=== PATIENT | female | born 1960 | race Caucasian/White ===

== ENCOUNTER 2021-08-19 18:03 | Inpatient (IN) | payer MEDICARE, MEDICAID ==
[2021-08-19 18:27] LABS: #Basophils 0.1 10x3/uL (0.0-0.2); #Eosinphils 0.3 10x3/uL (0.0-0.5); #Monocytes 0.7 10x3/uL (0.0-1.1); #Neutrophils 5.5 10x3/uL (1.5-8.4); %Basophils 0.6 % (0.0-2.0); %Eosinophils 3.6 % (0.0-6.0); %Lymphocytes 26.4 % (18.0-47.0); %Monocytes 7.3 % (0.0-10.0); %Neutrophils 61.8 % (40.0-75.0); Hemoglobin 12.7 g/dL (12.0-15.5); Mean Corpuscular HGB CONC 30.5 g/dL (32.0-36.0); Mean Corpuscular Hemoglobin 25.8 pg (27.0-33.0); Mean Corpuscular Volume 84.6 fl (81.6-98.3); Mean Platelet Volume 9.9 fl (7.4-10.4); Platelet Count 286 10x3/uL (150-450); RBC Distribution Width 14.2 % (11.5-14.5); Red Blood Cell (RBC) Count 4.93 10x6/uL (3.90-5.03); White Blood Cell (WBC) Count 8.9 10x3/uL (3.5-10.5)
[2021-08-19] MEDS ORDERED: Aspirin Chewable 81 MG TAB ONE (18:29)
[2021-08-19 18:41] LABS: ALT (SGPT) 25 U/L (8-55); AST (SGOT) 20 U/L (5-34); Albumin 3.8 g/dL (3.5-5.0); Alkaline Phosphatase 98 U/L (40-110); Anion Gap 14 mmol/L (10-20); BUN (Urea Nitrogen) 16 mg/dL (9.8-20.1); Bilirubin, Total 0.2 mg/dL (0.2-1.2); Calc. Creatinine Clearance 0 mL/min (70-130); Calcium 8.9 mg/dL (7.8-10.44); Carbon Dioxide 25 mmol/L (22-29); Chloride 105 mmol/L (98-107); Globulin 3.4 g/dL (2.4-3.5); Glucose 141 mg/dL (70-105); Potassium 3.8 mmol/L (3.5-5.1); Protein, Total 7.2 g/dL (6.0-8.3); Sodium 140 mmol/L (136-145)
[2021-08-19] MEDS ORDERED: Nitroglycerin 2% Ointment 1 INCH/1 GM Packet ONE (20:47)
[2021-08-19 21:39] VITALS: BMI 48.2
[2021-08-19] MEDS ORDERED: Baclofen 10 MG TAB PO SCH (23:00)
[2021-08-19] MEDS ORDERED: Nitroglycerin 2% Ointment 1 INCH/1 GM Packet TOP SCH ×2 (23:00)
[2021-08-19] MEDS ORDERED: Pregabalin 75 MG CAP PO SCH (23:00)
[2021-08-19] MEDS: HYDROcodone/Acetaminophen 10/325 mg Tablet PO PRN (23:10)
[2021-08-19] MEDS: Albuterol Sulfate 2.5 mg/3 ml Neb NEB PRN (23:20)
[2021-08-19 23:38] LABS: Troponin I Less than 0.010 ng/mL (< 0.028)
[2021-08-20] MEDS ORDERED: Lorazepam 0.5 MG TAB PO SCH (00:45)
[2021-08-20 02:35] LABS: Troponin I Less than 0.010 ng/mL (< 0.028)
[2021-08-20 02:55] LABS: Anion Gap 13 mmol/L (10-20); BUN (Urea Nitrogen) 18 mg/dL (9.8-20.1); Calc. Creatinine Clearance 165 mL/min (70-130); Calcium 9.1 mg/dL (7.8-10.44); Carbon Dioxide 25 mmol/L (22-29); Cardiac Risk 2.4 (Less than 4.5); Chloride 105 mmol/L (98-107); Cholesterol 145 mg/dl (< 200 Desired); Glucose 146 mg/dL (70-105); HDL Cholesterol 60 mg/dL (>60 Neg Risk); LDL Cholesterol, Calculated 68 mg/dL; Magnesium 1.8 mg/dL (1.6-2.6); Potassium 3.7 mmol/L (3.5-5.1); Sodium 139 mmol/L (136-145); Triglycerides 83 mg/dL (Less than 150)
[2021-08-20] MEDS: Nitroglycerin 2% Ointment 1 INCH/1 GM Packet TOP SCH ×3 (06:19→22:08)
[2021-08-20] MEDS: HYDROcodone/Acetaminophen 10/325 mg Tablet PO PRN ×2 (08:36→15:30)
[2021-08-20] MEDS: Baclofen 10 MG TAB PO SCH ×2 (08:37→20:58)
[2021-08-20] MEDS: Pregabalin 75 MG CAP PO SCH ×2 (08:38→20:59)
[2021-08-20] MEDS: Enoxaparin Sodium 40 MG/0.4 ML SYRINGE SC SCH (08:38)
[2021-08-20] MEDS: Aspirin Chewable 81 MG TAB PO SCH (08:38)
[2021-08-20] MEDS: Nitroglycerin 0.4 MG TAB (25 Tab Bottle) SL PRN ×3 (10:18→20:34)
[2021-08-20 11:18] LABS: Hemoglobin A1c 6.5 % (4.0-6.0)
[2021-08-20] MEDS: Albuterol Sulfate 2.5 mg/3 ml Neb NEB PRN ×3 (13:15→23:25)
[2021-08-20 13:56] LABS: SARS-CoV-2 PCR by NAA Not Detected (NotDetected)
[2021-08-20] MEDS: ALPRAZolam 0.25 MG TAB PO PRN ×2 (17:10→20:57)
[2021-08-21] MEDS: Nitroglycerin 2% Ointment 1 INCH/1 GM Packet TOP SCH (06:45)
[2021-08-21] MEDS: Pregabalin 75 MG CAP PO SCH ×2 (10:52→20:33)
[2021-08-21] MEDS: Baclofen 10 MG TAB PO SCH ×2 (10:53→20:32)
[2021-08-21] MEDS: Aspirin Chewable 81 MG TAB PO SCH (10:53)
[2021-08-21] MEDS: Ketorolac Tromethamine 30 MG/ML VIAL IVP PRN (10:53)
[2021-08-21] MEDS: Enoxaparin Sodium 40 MG/0.4 ML SYRINGE SC SCH (10:53)
[2021-08-21] MEDS: HYDROcodone/Acetaminophen 10/325 mg Tablet PO PRN ×2 (11:36→20:54)
[2021-08-21] MEDS: Albuterol Sulfate 2.5 mg/3 ml Neb NEB PRN ×2 (13:45→21:30)
[2021-08-21] MEDS: ALPRAZolam 0.25 MG TAB PO PRN (14:28)
[2021-08-21] MEDS ORDERED: PARoxetine 20 MG TAB PO SCH (17:00)
[2021-08-22] MEDS: Nitroglycerin 0.4 MG TAB (25 Tab Bottle) SL PRN ×2 (00:34→09:17)
[2021-08-22] MEDS: ALPRAZolam 0.25 MG TAB PO PRN ×3 (00:38→20:45)
[2021-08-22 09:01] LABS: #Eosinphils 0.5 10x3/uL (0.0-0.5); #Monocytes 0.5 10x3/uL (0.0-1.1); #Neutrophils 4.5 10x3/uL (1.5-8.4); %Basophils 0.5 % (0.0-2.0); %Eosinophils 6.5 % (0.0-6.0); %Lymphocytes 25.4 % (18.0-47.0); %Monocytes 6.7 % (0.0-10.0); %Neutrophils 60.6 % (40.0-75.0); Hemoglobin 12.5 g/dL (12.0-15.5); Mean Corpuscular HGB CONC 30.6 g/dL (32.0-36.0); Mean Corpuscular Volume 84.8 fl (81.6-98.3); Mean Platelet Volume 10.8 fl (7.4-10.4); Platelet Count 288 10x3/uL (150-450); RBC Distribution Width 14.5 % (11.5-14.5); Red Blood Cell (RBC) Count 4.81 10x6/uL (3.90-5.03); White Blood Cell (WBC) Count 7.5 10x3/uL (3.5-10.5)
[2021-08-22 09:12] LABS: Anion Gap 13 mmol/L (10-20); BUN (Urea Nitrogen) 23 mg/dL (9.8-20.1); Calc. Creatinine Clearance 165 mL/min (70-130); Calcium 9.1 mg/dL (7.8-10.44); Carbon Dioxide 27 mmol/L (22-29); Chloride 101 mmol/L (98-107); Glucose 109 mg/dL (70-105); Potassium 4.3 mmol/L (3.5-5.1); Sodium 137 mmol/L (136-145)
[2021-08-22] MEDS: Aspirin Chewable 81 MG TAB PO SCH (09:13)
[2021-08-22] MEDS: Pregabalin 75 MG CAP PO SCH ×2 (09:13→20:45)
[2021-08-22] MEDS: Baclofen 10 MG TAB PO SCH ×2 (09:16→20:45)
[2021-08-22] MEDS: Enoxaparin Sodium 40 MG/0.4 ML SYRINGE SC SCH (09:16)
[2021-08-22] MEDS: HYDROcodone/Acetaminophen 10/325 mg Tablet PO PRN ×3 (09:17→23:53)
[2021-08-22] MEDS: Ketorolac Tromethamine 30 MG/ML VIAL IVP PRN (10:14)
[2021-08-22] MEDS ORDERED: PARoxetine 20 MG TAB PO SCH (16:15)
[2021-08-23] MEDS: Albuterol Sulfate 2.5 mg/3 ml Neb NEB PRN (01:30)
[2021-08-23] MEDS: HYDROcodone/Acetaminophen 10/325 mg Tablet PO PRN ×3 (06:19→15:35)
[2021-08-23] MEDS: ALPRAZolam 0.25 MG TAB PO PRN ×2 (06:20→15:36)
[2021-08-23] MEDS ORDERED: PARoxetine 20 MG TAB PO SCH (09:00)
[2021-08-23] MEDS: Enoxaparin Sodium 40 MG/0.4 ML SYRINGE SC SCH (10:15)
[2021-08-23] MEDS: Pregabalin 75 MG CAP PO SCH (10:16)
[2021-08-23] MEDS: Baclofen 10 MG TAB PO SCH (10:16)
[2021-08-23 16:07] VITALS: BP 122/75; TEMP 97.2
== END 2021-08-23 16:32 | disposition home health service (06) | DRG 880 ==
LOC: CSHERS 18:03 → CSHTELE 21:02 → OBSVTOIN 08-21 15:07
PROVIDERS: ADMIT Family Medicine; ATTEND Internal Medicine
DX: F41.9 Anxiety disorder, unspecified (principal); Z68.42 Body mass index [BMI] 45.0-49.9, adult; R07.89 Other chest pain; I83.91 Asymptomatic varicose veins of right lower extremity; J45.909 Unspecified asthma, uncomplicated; G89.4 Chronic pain syndrome; E66.01 Morbid (severe) obesity due to excess calories; F32.A Depression, unspecified; I25.10 Atherosclerotic heart disease of native coronary artery without angina pectoris; Z20.822 Contact with and (suspected) exposure to COVID-19; Z86.718 Personal history of other venous thrombosis and embolism; I25.2 Old myocardial infarction; Z88.0 Allergy status to penicillin; Z91.041 Radiographic dye allergy status; Z79.84 Long term (current) use of oral hypoglycemic drugs
CPT/HCPCS: 36415; 36416; 70450; 71045; 71275; 80048; 80053; 80061; 83036; 83735; 83880; 84484; 85025; 85379; 93005; 93010; 93306; 93970; 94640; 94760; 96372; 96374; G0378; J1650; J1885; J7611; U0003; U0005

== ENCOUNTER 2021-10-09 01:04 | Emergency (ER) | payer MEDICARE, MEDICAID ==
[2021-10-09] MEDS ORDERED: Ketorolac Tromethamine 30 MG/ML VIAL ONE (02:02)
[2021-10-09 02:57] LABS: #Basophils 0.1 10x3/uL (0.0-0.2); #Eosinphils 0.2 10x3/uL (0.0-0.5); #Monocytes 0.7 10x3/uL (0.0-1.1); #Neutrophils 6.1 10x3/uL (1.5-8.4); %Basophils 0.6 % (0.0-2.0); %Eosinophils 2.4 % (0.0-6.0); %Lymphocytes 25.8 % (18.0-47.0); %Monocytes 6.9 % (0.0-10.0); %Neutrophils 63.8 % (40.0-75.0); Hemoglobin 12.5 g/dL (12.0-15.5); Mean Corpuscular HGB CONC 31.6 g/dL (32.0-36.0); Mean Corpuscular Hemoglobin 26.2 pg (27.0-33.0); Mean Corpuscular Volume 82.8 fl (81.6-98.3); Mean Platelet Volume 9.5 fl (7.4-10.4); Platelet Count 281 10x3/uL (150-450); RBC Distribution Width 14.2 % (11.5-14.5); Red Blood Cell (RBC) Count 4.78 10x6/uL (3.90-5.03); White Blood Cell (WBC) Count 9.5 10x3/uL (3.5-10.5)
[2021-10-09 05:35] LABS: ALT (SGPT) 23 U/L (8-55); AST (SGOT) 18 U/L (5-34); Albumin 3.6 g/dL (3.5-5.0); Alkaline Phosphatase 92 U/L (40-110); Anion Gap 13 mmol/L (10-20); BUN (Urea Nitrogen) 18 mg/dL (9.8-20.1); Bilirubin, Total 0.2 mg/dL (0.2-1.2); Calc. Creatinine Clearance 0 mL/min (70-130); Calcium 9.3 mg/dL (7.8-10.44); Carbon Dioxide 26 mmol/L (22-29); Chloride 104 mmol/L (98-107); Globulin 3.6 g/dL (2.4-3.5); Glucose 113 mg/dL (70-105); Potassium 3.3 mmol/L (3.5-5.1); Protein, Total 7.2 g/dL (6.0-8.3); Sodium 140 mmol/L (136-145)
== END 2021-10-09 04:30 | disposition home or self-care (01) ==
LOC: CSHERS 01:04
DX: R07.89 Other chest pain (principal); I50.9 Heart failure, unspecified; I25.2 Old myocardial infarction; J45.909 Unspecified asthma, uncomplicated; E66.9 Obesity, unspecified; M06.9 Rheumatoid arthritis, unspecified; Z79.899 Other long term (current) drug therapy
CPT/HCPCS: 36415; 71045; 80053; 83880; 84484; 85025; 93005; 93010; 94640; 94760; 96372; J1885; J7620

== ENCOUNTER 2021-10-30 11:30 | Emergency (ER) | payer MEDICARE, MEDICAID ==
[2021-10-30 12:44] LABS: #Monocytes 0.4 10x3/uL (0.0-1.1); #Neutrophils 9.4 10x3/uL (1.5-8.4); %Basophils 0.2 % (0.0-2.0); %Lymphocytes 15.1 % (18.0-47.0); %Monocytes 3.7 % (0.0-10.0); %Neutrophils 80.4 % (40.0-75.0); Hemoglobin 13.2 g/dL (12.0-15.5); Mean Corpuscular HGB CONC 31.6 g/dL (32.0-36.0); Mean Corpuscular Hemoglobin 26.1 pg (27.0-33.0); Mean Corpuscular Volume 82.6 fl (81.6-98.3); Mean Platelet Volume 10.3 fl (7.4-10.4); Platelet Count 273 10x3/uL (150-450); RBC Distribution Width 14.2 % (11.5-14.5); Red Blood Cell (RBC) Count 5.06 10x6/uL (3.90-5.03); White Blood Cell (WBC) Count 11.7 10x3/uL (3.5-10.5)
[2021-10-30 13:04] LABS: ALT (SGPT) 23 U/L (8-55); AST (SGOT) 16 U/L (5-34); Alkaline Phosphatase 85 U/L (40-110); Anion Gap 14 mmol/L (10-20); BUN (Urea Nitrogen) 23 mg/dL (9.8-20.1); Bilirubin, Total 0.2 mg/dL (0.2-1.2); Calc. Creatinine Clearance 0 mL/min (70-130); Calcium 9.2 mg/dL (7.8-10.44); Carbon Dioxide 26 mmol/L (22-29); Chloride 104 mmol/L (98-107); Globulin 3.6 g/dL (2.4-3.5); Glucose 140 mg/dL (70-105); Potassium 3.8 mmol/L (3.5-5.1); Protein, Total 7.6 g/dL (6.0-8.3); Sodium 140 mmol/L (136-145)
== END 2021-10-30 14:33 | disposition home or self-care (01) ==
LOC: CSHERS 11:30
DX: J20.9 Acute bronchitis, unspecified (principal); I25.2 Old myocardial infarction; I50.9 Heart failure, unspecified; M06.9 Rheumatoid arthritis, unspecified; J45.909 Unspecified asthma, uncomplicated
CPT/HCPCS: 36415; 71045; 80053; 84484; 85025; 93005

== ENCOUNTER 2021-11-22 15:30 | Emergency (ER) | payer MEDICARE, MEDICAID ==
[2021-11-22] MEDS ORDERED: Ondansetron PF 4 MG/2 ML Vial ONE (16:30)
[2021-11-22] MEDS ORDERED: Morphine 4 MG/ML VIAL ONE ×2 (16:30→18:10)
[2021-11-22 16:32] LABS: #Basophils 0.1 10x3/uL (0.0-0.2); #Eosinphils 0.2 10x3/uL (0.0-0.5); #Monocytes 0.7 10x3/uL (0.0-1.1); #Neutrophils 6.6 10x3/uL (1.5-8.4); %Basophils 0.5 % (0.0-2.0); %Eosinophils 1.6 % (0.0-6.0); %Lymphocytes 23.3 % (18.0-47.0); %Monocytes 7.5 % (0.0-10.0); %Neutrophils 66.7 % (40.0-75.0); Hemoglobin 13.5 g/dL (12.0-15.5); Mean Corpuscular Hemoglobin 25.8 pg (27.0-33.0); Mean Corpuscular Volume 83.4 fl (81.6-98.3); Mean Platelet Volume 9.7 fl (7.4-10.4); Platelet Count 276 10x3/uL (150-450); RBC Distribution Width 14.3 % (11.5-14.5); Red Blood Cell (RBC) Count 5.23 10x6/uL (3.90-5.03); White Blood Cell (WBC) Count 9.9 10x3/uL (3.5-10.5)
[2021-11-22 16:44] LABS: ALT (SGPT) 26 U/L (8-55); AST (SGOT) 21 U/L (5-34); Albumin 3.8 g/dL (3.5-5.0); Alkaline Phosphatase 104 U/L (40-110); Anion Gap 12 mmol/L (10-20); BUN (Urea Nitrogen) 13 mg/dL (9.8-20.1); Bilirubin, Total 0.2 mg/dL (0.2-1.2); Calc. Creatinine Clearance 0 mL/min (70-130); Calcium 9.2 mg/dL (7.8-10.44); Carbon Dioxide 30 mmol/L (22-29); Chloride 102 mmol/L (98-107); Globulin 3.9 g/dL (2.4-3.5); Glucose 139 mg/dL (70-105); Potassium 3.1 mmol/L (3.5-5.1); Protein, Total 7.7 g/dL (6.0-8.3); Sodium 141 mmol/L (136-145)
[2021-11-22 16:52] LABS: Bilirubin Neg (Negative); Blood, Urine 250 (Negative); Clarity Cloudy (Clear); Glucose, Urine (Dipstick) Normal (Negative); Ketone, Urine Negative (Negative); Leukocyte 500 (Negative); Nitrite Negative (Negative); Protein, Urine (Dipstick) 100 mg/dl (Neg-Trace); Specific Gravity, Urine 1.015 (1.002-1.036); Urobilinogen Normal mg/dL (Less than 2)
[2021-11-22 17:01] LABS: Bacteria/HPF 4+ HPF (None Seen); WBC/HPF 21-50 HPF (0-3)
[2021-11-22 17:02] LABS: RBC/HPF 0-3 HPF (0-3)
[2021-11-22] MEDS ORDERED: Ketorolac Tromethamine 30 MG/ML VIAL ONE (18:11)
== END 2021-11-22 18:54 | disposition home or self-care (01) ==
LOC: CSHERS 15:30
DX: N30.01 Acute cystitis with hematuria (principal); I25.2 Old myocardial infarction; J45.909 Unspecified asthma, uncomplicated; M06.9 Rheumatoid arthritis, unspecified; I50.9 Heart failure, unspecified
CPT/HCPCS: 74176; 80053; 81003; 81015; 85025; 96374; 96375; 96376; J1885; J2270; J2405

== ENCOUNTER 2022-06-15 14:29 | Emergency (ER) | payer MEDICARE, OTHER ==
[2022-06-15 15:43] LABS: #Basophils 0.1 10x3/uL (0.0-0.2); #Eosinphils 0.1 10x3/uL (0.0-0.5); #Monocytes 0.7 10x3/uL (0.0-1.1); #Neutrophils 6.6 10x3/uL (1.5-8.4); %Basophils 0.5 % (0.0-2.0); %Eosinophils 1.2 % (0.0-6.0); %Lymphocytes 20.7 % (18.0-47.0); %Monocytes 7.2 % (0.0-10.0); %Neutrophils 70.2 % (40.0-75.0); Hemoglobin 12.4 g/dL (12.0-15.5); Mean Corpuscular HGB CONC 31.4 g/dL (32.0-36.0); Mean Corpuscular Hemoglobin 25.9 pg (27.0-33.0); Mean Corpuscular Volume 82.6 fl (81.6-98.3); Platelet Count 247 10x3/uL (150-450); RBC Distribution Width 14.1 % (11.5-14.5); Red Blood Cell (RBC) Count 4.78 10x6/uL (3.90-5.03); White Blood Cell (WBC) Count 9.3 10x3/uL (3.5-10.5)
[2022-06-15 15:59] LABS: ALT (SGPT) 25 U/L (8-55); AST (SGOT) 20 U/L (5-34); Albumin 3.6 g/dL (3.5-5.0); Alkaline Phosphatase 91 U/L (40-110); Anion Gap 13 mmol/L (10-20); BUN (Urea Nitrogen) 12 mg/dL (9.8-20.1); Bilirubin, Total 0.2 mg/dL (0.2-1.2); Calc. Creatinine Clearance 0 mL/min (70-130); Calcium 8.9 mg/dL (7.8-10.44); Carbon Dioxide 29 mmol/L (22-29); Chloride 103 mmol/L (98-107); Estimated GFR 99; Globulin 3.2 g/dL (2.4-3.5); Glucose 181 mg/dL (70-105); Potassium 3.7 mmol/L (3.5-5.1); Protein, Total 6.8 g/dL (6.0-8.3); Sodium 141 mmol/L (136-145)
== END 2022-06-15 16:56 | disposition home or self-care (01) ==
LOC: CSHERS 14:29
DX: J45.901 Unspecified asthma with (acute) exacerbation (principal); I25.2 Old myocardial infarction; I50.9 Heart failure, unspecified
CPT/HCPCS: 71045; 80053; 83880; 84484; 85025; 93005; J7620

== ENCOUNTER 2022-10-02 15:32 | Emergency (ER) | payer MEDICARE, MEDICAID ==
[~2022-10-02 15:32] MED LIST: Iopamidol 300 61% 100 ML VIAL FS ONE
[2022-10-02] MEDS ORDERED: Morphine 4 MG/ML VIAL ONE (16:27)
[2022-10-02 17:07] LABS: #Basophils 0.1 10x3/uL (0.0-0.2); #Monocytes 0.7 10x3/uL (0.0-1.1); %Basophils 0.6 % (0.0-2.0); %Eosinophils 0.5 % (0.0-6.0); %Lymphocytes 22.8 % (18.0-47.0); %Monocytes 8.1 % (0.0-10.0); %Neutrophils 67.7 % (40.0-75.0); Hemoglobin 12.8 g/dL (12.0-15.5); Mean Corpuscular HGB CONC 32.1 g/dL (32.0-36.0); Mean Corpuscular Hemoglobin 26.1 pg (27.0-33.0); Mean Corpuscular Volume 81.4 fl (81.6-98.3); Mean Platelet Volume 9.9 fl (7.4-10.4); Platelet Count 271 10x3/uL (150-450); RBC Distribution Width 14.6 % (11.5-14.5); White Blood Cell (WBC) Count 8.8 10x3/uL (3.5-10.5)
[2022-10-02 17:22] LABS: ALT (SGPT) 20 U/L (8-55); AST (SGOT) 16 U/L (5-34); Albumin 3.9 g/dL (3.4-4.8); Alkaline Phosphatase 78 U/L (40-110); Anion Gap 15 mmol/L (10-20); BUN (Urea Nitrogen) 10 mg/dL (9.8-20.1); Bilirubin, Total 0.4 mg/dL (0.2-1.2); Calc. Creatinine Clearance 0 mL/min (70-130); Calcium 9.4 mg/dL (7.8-10.44); Carbon Dioxide 27 mmol/L (23-31); Chloride 102 mmol/L (98-107); Estimated GFR 94; Globulin 3.6 g/dL (2.4-3.5); Glucose 129 mg/dL (80-115); Lipase 10 U/L (8-78); Potassium 3.2 mmol/L (3.5-5.1); Protein, Total 7.5 g/dL (5.8-8.1); Sodium 141 mmol/L (136-145)
[2022-10-02 17:29] LABS: Bilirubin Neg (Negative); Blood, Urine 150 (Negative); Clarity Clear (Clear); Glucose, Urine (Dipstick) Normal (Negative); Ketone, Urine 5 mg/dL (Negative); Leukocyte 25 (Negative); Nitrite Negative (Negative); Protein, Urine (Dipstick) 100 mg/dl (Neg-Trace); Urobilinogen Normal mg/dL (Less than 2)
[2022-10-02 17:51] LABS: Bacteria/HPF 2+ HPF (None Seen)
[2022-10-02 17:53] LABS: Trichomonas/HPF 1+ HPF (None Seen)
[2022-10-02 17:55] LABS: Mucous/LPF 2+ LPF (<2+)
== END 2022-10-02 19:47 | disposition left against medical advice (07) ==
LOC: CSHERS 15:32
DX: T81.31XA Disruption of external operation (surgical) wound, not elsewhere classified, initial encounter (principal); E66.9 Obesity, unspecified
CPT/HCPCS: 36415; 74177; 80053; 81003; 81015; 83605; 83690; 85025; 87040; 87070; 87205; 96374; J2270; Q9967

== ENCOUNTER 2022-12-10 16:17 | Emergency (ER) | payer MEDICARE, MEDICAID ==
[2022-12-10] MEDS ORDERED: Ipratropium Bromide 2.5 ml Neb ONE (16:39)
[2022-12-10 17:17] LABS: #Basophils 0.1 10x3/uL (0.0-0.2); #Eosinphils 0.2 10x3/uL (0.0-0.5); #Monocytes 0.7 10x3/uL (0.0-1.1); #Neutrophils 6.7 10x3/uL (1.5-8.4); %Basophils 0.6 % (0.0-2.0); %Eosinophils 1.9 % (0.0-6.0); %Lymphocytes 24.7 % (18.0-47.0); %Monocytes 6.4 % (0.0-10.0); %Neutrophils 65.8 % (40.0-75.0); Hemoglobin 12.5 g/dL (12.0-15.5); Mean Corpuscular HGB CONC 31.5 g/dL (32.0-36.0); Mean Corpuscular Hemoglobin 25.9 pg (27.0-33.0); Mean Corpuscular Volume 82.4 fl (81.6-98.3); Mean Platelet Volume 9.7 fl (7.4-10.4); Platelet Count 299 10x3/uL (150-450); RBC Distribution Width 14.4 % (11.5-14.5); Red Blood Cell (RBC) Count 4.82 10x6/uL (3.90-5.03); White Blood Cell (WBC) Count 10.1 10x3/uL (3.5-10.5)
[2022-12-10] MEDS ORDERED: methylPREDNISolone Sod Succ/PF 125 MG/2 ML VIAL ONE (17:20)
[2022-12-10 17:32] LABS: ALT (SGPT) 24 U/L (8-55); AST (SGOT) 20 U/L (5-34); Albumin 3.9 g/dL (3.4-4.8); Alkaline Phosphatase 115 U/L (40-110); Anion Gap 16 mmol/L (10-20); BUN (Urea Nitrogen) 16 mg/dL (9.8-20.1); Bilirubin, Total 0.1 mg/dL (0.2-1.2); Calc. Creatinine Clearance 0 mL/min (70-130); Calcium 9.4 mg/dL (7.8-10.44); Carbon Dioxide 25 mmol/L (23-31); Chloride 104 mmol/L (98-107); Estimated GFR 95; Globulin 3.5 g/dL (2.4-3.5); Glucose 153 mg/dL (80-115); Lipase 20 U/L (8-78); Protein, Total 7.4 g/dL (5.8-8.1); Sodium 141 mmol/L (136-145)
[2022-12-10] MEDS ORDERED: Ipratropium/Albuterol 3 ML NEB NEB SCH (17:45)
== END 2022-12-10 18:15 | disposition home or self-care (01) ==
LOC: CSHERS 16:17
DX: J45.901 Unspecified asthma with (acute) exacerbation (principal); R79.1 Abnormal coagulation profile; E66.9 Obesity, unspecified; I50.9 Heart failure, unspecified
CPT/HCPCS: 71045; 80053; 83690; 83880; 84484; 85025; 85379; 93005; 96374; J2930; J7620

== ENCOUNTER 2023-04-22 20:08 | Emergency (ER) | payer MEDICARE, MEDICAID ==
[2023-04-22] MEDS ORDERED: Ketorolac Tromethamine 30 MG/ML VIAL ONE (20:39)
== END 2023-04-22 21:31 | disposition home or self-care (01) ==
LOC: CSHERS 20:08
DX: S43.401A Unspecified sprain of right shoulder joint, initial encounter (principal); E66.9 Obesity, unspecified; W18.30XA Fall on same level, unspecified, initial encounter
CPT/HCPCS: 96372; J1885

== ENCOUNTER 2023-05-30 17:26 | Inpatient (IN) | payer MEDICARE, MEDICAID ==
[2023-05-30] MEDS ORDERED: Acetaminophen 500 MG TAB ONE (18:14)
[2023-05-30 19:12] LABS: SARS-CoV-2 NAA Rapid Test Not Detected (NotDetected)
[2023-05-30 19:14] LABS: #Eosinphils 0.1 10x3/uL (0.0-0.5); #Monocytes 0.9 10x3/uL (0.0-1.1); #Neutrophils 5.4 10x3/uL (1.5-8.4); %Basophils 0.4 % (0.0-2.0); %Lymphocytes 20.6 % (18.0-47.0); %Monocytes 10.9 % (0.0-10.0); %Neutrophils 66.6 % (40.0-75.0); Hematocrit 40.5 % (34.9-44.5); Hemoglobin 13.1 g/dL (12.0-15.5); Mean Corpuscular HGB CONC 32.3 g/dL (32.0-36.0); Mean Corpuscular Hemoglobin 25.6 pg (27.0-33.0); Mean Corpuscular Volume 79.1 fl (81.6-98.3); Mean Platelet Volume 9.8 fl (7.4-10.4); Platelet Count 246 10x3/uL (150-450); Red Blood Cell (RBC) Count 5.12 10x6/uL (3.90-5.03); White Blood Cell (WBC) Count 8.2 10x3/uL (3.5-10.5)
[2023-05-30] MEDS ORDERED: Ondansetron PF 4 MG/2 ML Vial ONE (19:21)
[2023-05-30 19:24] LABS: ALT (SGPT) 30 U/L (8-55); AST (SGOT) 27 U/L (5-34); Albumin 3.7 g/dL (3.4-4.8); Alkaline Phosphatase 82 U/L (40-110); Anion Gap 15 mmol/L (10-20); BUN (Urea Nitrogen) 10 mg/dL (9.8-20.1); Bilirubin, Total 0.4 mg/dL (0.2-1.2); Calc. Creatinine Clearance 0 mL/min (70-130); Carbon Dioxide 23 mmol/L (23-31); Chloride 96 mmol/L (98-107); Estimated GFR 89; Globulin 4.3 g/dL (2.4-3.5); Glucose 168 mg/dL (80-115); Potassium 3.3 mmol/L (3.5-5.1); Sodium 131 mmol/L (136-145)
[2023-05-30 20:21] LABS: Bilirubin Neg (Negative); Blood, Urine 250 (Negative); Clarity Clear (Clear); Glucose, Urine (Dipstick) Normal (Negative); Ketone, Urine Negative (Negative); Leukocyte Negative (Negative); Nitrite Negative (Negative); Protein, Urine (Dipstick) 30 mg/dl (Neg-Trace); Specific Gravity, Urine 1.005 (1.005-1.030); Urobilinogen Normal mg/dL (Less than 2)
[2023-05-30 20:32] LABS: Bacteria/HPF None Seen HPF (None Seen); CAUTI Indications for Culture Pelvic or flank pain; Squamous Epithelial 0-3 HPF (0-3); WBC/HPF None Seen HPF (0-3)
[2023-05-30 20:33] LABS: Urine Culture Reflex No No
[2023-05-30] MEDS ORDERED: cefTRIAXone (ROCEPHIN) 1 GM VIAL ONE (21:45)
[2023-05-30] MEDS ORDERED: Acetaminophen 325 MG TAB PO PRN (22:46)
[2023-05-30] MEDS ORDERED: Senokot S 8.6-50 MG TAB PO PRN (22:46)
[2023-05-30] MEDS ORDERED: Ondansetron ODT 4 MG TAB PO PRN (22:46)
[2023-05-30] MEDS ORDERED: HYDROcodone/Acetaminophen 10/325 mg Tablet PO PRN (22:46)
[2023-05-30 23:32] LABS: Magnesium 1.6 mg/dL (1.6-2.6)
[2023-05-31 00:21] VITALS: BMI 48.3
[2023-05-31] MEDS: Azithromycin 500 MG in Sodium Chloride 0.9% 250 ML 250 ML IVPB SCH (00:44)
[2023-05-31] MEDS: Guaifenesin DM 100-10/5 ML UDCUP PO PRN ×2 (00:55→06:14)
[2023-05-31 04:54] LABS: #Neutrophils 4.6 10x3/uL (1.5-8.4); %Basophils 0.6 % (0.0-2.0); %Eosinophils 0.4 % (0.0-6.0); %Monocytes 14.5 % (0.0-10.0); %Neutrophils 68.9 % (40.0-75.0); Hematocrit 37.3 % (34.9-44.5); Hemoglobin 11.7 g/dL (12.0-15.5); Mean Corpuscular HGB CONC 31.4 g/dL (32.0-36.0); Mean Corpuscular Hemoglobin 25.3 pg (27.0-33.0); Mean Corpuscular Volume 80.7 fl (81.6-98.3); Mean Platelet Volume 9.8 fl (7.4-10.4); Platelet Count 228 10x3/uL (150-450); RBC Distribution Width 14.2 % (11.5-14.5); Red Blood Cell (RBC) Count 4.62 10x6/uL (3.90-5.03); White Blood Cell (WBC) Count 6.7 10x3/uL (3.5-10.5)
[2023-05-31] MEDS ORDERED: Magnesium Oxide 400 MG TAB PO SCH (05:00)
[2023-05-31] MEDS ORDERED: Potassium Chloride 20 MEQ TAB PO SCH (05:00)
[2023-05-31 05:55] LABS: Anion Gap 13 mmol/L (10-20); BUN (Urea Nitrogen) 10 mg/dL (9.8-20.1); Calc. Creatinine Clearance 161 mL/min (70-130); Calcium 8.4 mg/dL (7.8-10.44); Carbon Dioxide 24 mmol/L (23-31); Chloride 102 mmol/L (98-107); Estimated GFR 101; Glucose 134 mg/dL (80-115); Potassium 3.2 mmol/L (3.5-5.1); Sodium 136 mmol/L (136-145)
[2023-05-31] MEDS ORDERED: Electrolyte Replacement Protocol 1 EACH FS SCH (08:15)
[2023-05-31] MEDS ORDERED: Ventolin HFA Inhaler 60 PUFF INHALER INH SCH (09:00)
[2023-05-31] MEDS: Pregabalin 50 MG CAP PO SCH ×2 (09:24→22:26)
[2023-05-31] MEDS: Baclofen 10 MG TAB PO SCH ×3 (09:24→22:27)
[2023-05-31] MEDS: Aspirin 81 mg Enteric Coated Tablet PO SCH (09:25)
[2023-05-31] MEDS: Ventolin HFA Inhaler 60 PUFF INHALER INH SCH ×3 (14:18→22:20)
[2023-05-31] MEDS ORDERED: Guaifenesin DM 100-10/5 ML UDCUP PO PRN (15:39)
[2023-05-31] MEDS ORDERED: guaiFENesin/Codeine Phosphate 100 mg/10 mg 5 ml UD Cup PO PRN (15:56)
[2023-05-31] MEDS ORDERED: Benzonatate 100 MG CAP PO SCH (16:00)
[2023-05-31] MEDS ORDERED: HYDROcodone/Acetaminophen 5/325 mg Tablet PO PRN (17:49)
[2023-05-31] MEDS ORDERED: HYDROcodone/Acetaminophen 10/325 mg Tablet PO PRN (18:21)
[2023-05-31 18:48] LABS: Legionella Urinary Ag Negative (Negative); Strep pneumo Urine Ag NEGATIVE (NEGATIVE)
[2023-05-31] MEDS ORDERED: guaiFENesin/DM ER PO SCH (21:00)
[2023-05-31] MEDS ORDERED: guaiFENesin ER 600 MG TAB PO SCH (21:00)
[2023-05-31] MEDS: Saccharomyces boulardii 250 MG CAP PO SCH (22:27)
[2023-05-31] MEDS: Benzonatate 100 MG CAP PO SCH (22:27)
[2023-05-31] MEDS: cefTRIAXone\\ROCEPHIN 1 GM in Sodium Chloride 0.9% 100 ML IVPB SCH (22:28)
[2023-06-01] MEDS: Azithromycin 500 MG in Sodium Chloride 0.9% 250 ML 250 ML IVPB SCH (01:15)
[2023-06-01] MEDS: Ventolin HFA Inhaler 60 PUFF INHALER INH SCH ×4 (03:50→20:59)
[2023-06-01 05:51] LABS: Anion Gap 14 mmol/L (10-20); BUN (Urea Nitrogen) 9 mg/dL (9.8-20.1); Calc. Creatinine Clearance 156 mL/min (70-130); Calcium 8.2 mg/dL (7.8-10.44); Carbon Dioxide 22 mmol/L (23-31); Chloride 100 mmol/L (98-107); Estimated GFR 100; Glucose 197 mg/dL (80-115); Magnesium 1.6 mg/dL (1.6-2.6); Phosphorus 3.5 mg/dL (2.3-4.7); Potassium 3.6 mmol/L (3.5-5.1); Sodium 132 mmol/L (136-145)
[2023-06-01 06:19] LABS: #Eosinphils 0.1 10x3/uL (0.0-0.5); #Monocytes 0.7 10x3/uL (0.0-1.1); #Neutrophils 3.3 10x3/uL (1.5-8.4); %Basophils 0.5 % (0.0-2.0); %Eosinophils 2.5 % (0.0-6.0); %Lymphocytes 25.2 % (18.0-47.0); %Monocytes 12.8 % (0.0-10.0); %Neutrophils 58.3 % (40.0-75.0); Hematocrit 35.9 % (34.9-44.5); Hemoglobin 11.4 g/dL (12.0-15.5); Mean Corpuscular HGB CONC 31.8 g/dL (32.0-36.0); Mean Corpuscular Hemoglobin 25.9 pg (27.0-33.0); Mean Corpuscular Volume 81.4 fl (81.6-98.3); Platelet Count 245 10x3/uL (150-450); RBC Distribution Width 14.6 % (11.5-14.5); Red Blood Cell (RBC) Count 4.41 10x6/uL (3.90-5.03); White Blood Cell (WBC) Count 5.6 10x3/uL (3.5-10.5)
[2023-06-01] MEDS ORDERED: HYDROcodone/Acetaminophen 10/325 mg Tablet PO PRN (07:45)
[2023-06-01] MEDS ORDERED: Magnesium 2 GM/50 ML(in water) 2 GM in Premix Bag 1 BAG IVPB SCH (08:00)
[2023-06-01] MEDS: Baclofen 10 MG TAB PO SCH ×4 (08:43→21:24)
[2023-06-01] MEDS: Benzonatate 100 MG CAP PO SCH ×4 (08:43→21:24)
[2023-06-01] MEDS: Aspirin 81 mg Enteric Coated Tablet PO SCH ×2 (08:43→11:07)
[2023-06-01] MEDS: Pregabalin 50 MG CAP PO SCH (08:50)
[2023-06-01 08:52] LABS: Troponin I Less than 0.010 ng/mL (< 0.028)
[2023-06-01] MEDS: Pregabalin 75 MG CAP PO SCH ×2 (09:07→21:24)
[2023-06-01] MEDS ORDERED: Sodium Chloride 0.9% 500 ML IV SCH (09:15)
[2023-06-01 09:29] LABS: Actual Bicarbonate (HCO3a) 23.4 mEq/L (22-28); Base Excess (BEa) -1.7 mEq/L (-2.0 to +3.0); Calcium, Ionized (arterial) 1.11 mmol/L (1.12-1.30); Carboxyhemoglobin (COHb) 0.3 gm% (0.0-3.0); Hematocrit-ABG 37 % (36.0-47.0); Hemoglobin (Hb) 12.5 g/dL (12.0-16.0); O2 Tension (PaO2), arterial 109.9 mmHg (> 80.0); Potassium - ABG Lab 3.43 mmol/L (3.70-5.30); Puncture Site RRA; pH, Arterial 7.375 (7.35-7.45)
[2023-06-01] MEDS ORDERED: Nitroglycerin 0.4 MG TAB (25 Tab Bottle) SL PRN (14:32)
[2023-06-01 15:36] LABS: Troponin I Less than 0.010 ng/mL (< 0.028)
[2023-06-01 18:01] LABS: Troponin I Less than 0.010 ng/mL (< 0.028)
[2023-06-01] MEDS: cefTRIAXone\\ROCEPHIN 1 GM in Sodium Chloride 0.9% 100 ML IVPB SCH (21:24)
[2023-06-01] MEDS: Saccharomyces boulardii 250 MG CAP PO SCH (21:25)
[2023-06-02] MEDS: Ventolin HFA Inhaler 60 PUFF INHALER INH SCH ×8 (00:35→23:12)
[2023-06-02] MEDS: Azithromycin 500 MG in Sodium Chloride 0.9% 250 ML 250 ML IVPB SCH (01:23)
[2023-06-02 05:51] LABS: #Eosinphils 0.2 10x3/uL (0.0-0.5); #Monocytes 0.6 10x3/uL (0.0-1.1); #Neutrophils 3.1 10x3/uL (1.5-8.4); %Basophils 0.5 % (0.0-2.0); %Eosinophils 3.1 % (0.0-6.0); %Lymphocytes 31.5 % (18.0-47.0); %Neutrophils 53.6 % (40.0-75.0); Hematocrit 35.9 % (34.9-44.5); Hemoglobin 11.2 g/dL (12.0-15.5); Mean Corpuscular HGB CONC 31.2 g/dL (32.0-36.0); Mean Corpuscular Volume 83.3 fl (81.6-98.3); Mean Platelet Volume 9.7 fl (7.4-10.4); Platelet Count 253 10x3/uL (150-450); RBC Distribution Width 14.6 % (11.5-14.5); Red Blood Cell (RBC) Count 4.31 10x6/uL (3.90-5.03); White Blood Cell (WBC) Count 5.8 10x3/uL (3.5-10.5)
[2023-06-02 06:12] LABS: Anion Gap 14 mmol/L (10-20); BUN (Urea Nitrogen) 10 mg/dL (9.8-20.1); Calc. Creatinine Clearance 161 mL/min (70-130); Calcium 8.5 mg/dL (7.8-10.44); Carbon Dioxide 25 mmol/L (23-31); Chloride 104 mmol/L (98-107); Estimated GFR 101; Glucose 109 mg/dL (80-115); Potassium 3.7 mmol/L (3.5-5.1); Sodium 139 mmol/L (136-145)
[2023-06-02] MEDS: Magnesium 2 GM/50 ML(in water) 2 GM in Premix Bag 1 BAG IVPB SCH ×2 (09:09→09:21)
[2023-06-02] MEDS: Guaifenesin DM 100-10/5 ML UDCUP PO PRN (09:10)
[2023-06-02] MEDS: Pregabalin 75 MG CAP PO SCH ×2 (09:11→21:31)
[2023-06-02] MEDS: Benzonatate 100 MG CAP PO SCH ×3 (09:11→21:31)
[2023-06-02] MEDS: Aspirin 81 mg Enteric Coated Tablet PO SCH (09:11)
[2023-06-02] MEDS: Baclofen 10 MG TAB PO SCH ×3 (09:11→21:30)
[2023-06-02] MEDS: HYDROcodone/Acetaminophen 5/325 mg Tablet PO PRN ×2 (09:26→14:31)
[2023-06-02] MEDS: Saccharomyces boulardii 250 MG CAP PO SCH (21:30)
[2023-06-02] MEDS ORDERED: guaiFENesin ER 600 MG TAB PO SCH (22:30)
[2023-06-02] MEDS: cefTRIAXone\\ROCEPHIN 1 GM in Sodium Chloride 0.9% 100 ML IVPB SCH (22:43)
[2023-06-03] MEDS: Azithromycin 500 MG in Sodium Chloride 0.9% 250 ML 250 ML IVPB SCH (00:05)
[2023-06-03] MEDS: Ventolin HFA Inhaler 60 PUFF INHALER INH SCH ×3 (03:55→11:25)
[2023-06-03] MEDS: HYDROcodone/Acetaminophen 5/325 mg Tablet PO PRN (04:30)
[2023-06-03 04:51] LABS: #Basophils 0.1 10x3/uL (0.0-0.2); #Eosinphils 0.3 10x3/uL (0.0-0.5); #Monocytes 0.5 10x3/uL (0.0-1.1); #Neutrophils 4.1 10x3/uL (1.5-8.4); %Basophils 0.7 % (0.0-2.0); %Eosinophils 3.7 % (0.0-6.0); %Lymphocytes 29.2 % (18.0-47.0); %Monocytes 7.6 % (0.0-10.0); %Neutrophils 58.1 % (40.0-75.0); Hematocrit 33.1 % (34.9-44.5); Hemoglobin 10.3 g/dL (12.0-15.5); Mean Corpuscular HGB CONC 31.1 g/dL (32.0-36.0); Mean Corpuscular Hemoglobin 25.6 pg (27.0-33.0); Mean Corpuscular Volume 82.1 fl (81.6-98.3); Mean Platelet Volume 9.3 fl (7.4-10.4); Platelet Count 258 10x3/uL (150-450); RBC Distribution Width 14.8 % (11.5-14.5); Red Blood Cell (RBC) Count 4.03 10x6/uL (3.90-5.03)
[2023-06-03 05:06] LABS: Anion Gap 12 mmol/L (10-20); BUN (Urea Nitrogen) 14 mg/dL (9.8-20.1); Calc. Creatinine Clearance 145 mL/min (70-130); Calcium 8.6 mg/dL (7.8-10.44); Carbon Dioxide 26 mmol/L (23-31); Chloride 102 mmol/L (98-107); Estimated GFR 98; Glucose 139 mg/dL (80-115); Magnesium 1.8 mg/dL (1.6-2.6); Sodium 136 mmol/L (136-145)
[2023-06-03] MEDS: Guaifenesin DM 100-10/5 ML UDCUP PO PRN (07:57)
[2023-06-03] MEDS ORDERED: Magnesium 2 GM/50 ML(in water) 2 GM in Premix Bag 1 BAG IVPB SCH (09:00)
[2023-06-03] MEDS ORDERED: guaiFENesin ER 600 MG TAB PO SCH (09:00)
[2023-06-03] MEDS: Pregabalin 75 MG CAP PO SCH (09:04)
[2023-06-03] MEDS: Benzonatate 100 MG CAP PO SCH (09:04)
[2023-06-03] MEDS: Aspirin 81 mg Enteric Coated Tablet PO SCH (09:04)
[2023-06-03] MEDS: Baclofen 10 MG TAB PO SCH (09:04)
[2023-06-03 12:55] VITALS: BP 142/86; TEMP 98.2
== END 2023-06-03 15:00 | disposition home or self-care (01) | DRG 871 ==
LOC: CSHERS 17:26 → CSHTELE 23:53 → OBSVTOIN 05-31 15:40
PROVIDERS: ADMIT Family Medicine; ATTEND Internal Medicine
PROC: 3E03329 Introduction of Other Anti-infective into Peripheral Vein, Percutaneous Approach (ICD-10-PCS; principal; 2023-05-31)
PROC: 4A033R1 Measurement of Arterial Saturation, Peripheral, Percutaneous Approach (ICD-10-PCS; 2023-06-01)
DX: A41.9 Sepsis, unspecified organism (principal); J18.9 Pneumonia, unspecified organism; J45.901 Unspecified asthma with (acute) exacerbation; E87.1 Hypo-osmolality and hyponatremia; Z68.42 Body mass index [BMI] 45.0-49.9, adult; E11.9 Type 2 diabetes mellitus without complications; I25.10 Atherosclerotic heart disease of native coronary artery without angina pectoris; F41.9 Anxiety disorder, unspecified; M06.9 Rheumatoid arthritis, unspecified; I50.9 Heart failure, unspecified; G89.4 Chronic pain syndrome; E66.01 Morbid (severe) obesity due to excess calories; G47.30 Sleep apnea, unspecified; M19.90 Unspecified osteoarthritis, unspecified site; I11.0 Hypertensive heart disease with heart failure; D63.8 Anemia in other chronic diseases classified elsewhere; E83.42 Hypomagnesemia; I25.2 Old myocardial infarction; Z96.653 Presence of artificial knee joint, bilateral; Z20.822 Contact with and (suspected) exposure to COVID-19; Z88.0 Allergy status to penicillin; Z79.51 Long term (current) use of inhaled steroids; Z79.84 Long term (current) use of oral hypoglycemic drugs; Z79.899 Other long term (current) drug therapy; Z90.710 Acquired absence of both cervix and uterus; Z98.890 Other specified postprocedural states; Z82.49 Family history of ischemic heart disease and other diseases of the circulatory system; Z91.041 Radiographic dye allergy status; Z80.1 Family history of malignant neoplasm of trachea, bronchus and lung
CPT/HCPCS: 36415; 36416; 36600; 71045; 71260; 80048; 80053; 81001; 82805; 83605; 83735; 84100; 84484; 85025; 87040; 87086; 87449; 87899; 93005; 93010; 94640; 94760; 96361; 96365; 96372; 96375; G0378; J0456; J0696; J1650; J2405; J3475; J3490; J7030; J7050; J7611; Q0162; Q9967

== ENCOUNTER 2023-06-18 22:54 | Emergency (ER) | payer MEDICARE, MEDICAID | END 2023-06-19 02:06 | disposition home or self-care (01) | LOC: CSHERS 22:54 | DX: M79.651 Pain in right thigh (principal); R22.41 Localized swelling, mass and lump, right lower limb; I11.0 Hypertensive heart disease with heart failure; I50.9 Heart failure, unspecified; E66.9 Obesity, unspecified; E11.9 Type 2 diabetes mellitus without complications; I25.10 Atherosclerotic heart disease of native coronary artery without angina pectoris ==

== ENCOUNTER 2023-07-17 11:38 | Emergency (ER) | payer MEDICARE, MEDICAID ==
[2023-07-17] MEDS ORDERED: Ipratropium/Albuterol 3 ML NEB ONE (13:14)
[2023-07-17] MEDS ORDERED: Dexamethasone 10 MG/ML VIAL ONE (13:42)
[2023-07-17 14:41] LABS: SARS-CoV-2 NAA Rapid Test Not Detected (NotDetected)
== END 2023-07-17 14:20 | disposition home or self-care (01) ==
LOC: CSHERS 11:38
DX: R06.2 Wheezing (principal); Z20.822 Contact with and (suspected) exposure to COVID-19; I25.2 Old myocardial infarction; I50.9 Heart failure, unspecified; Z79.899 Other long term (current) drug therapy
CPT/HCPCS: 0240U; 71046; 93005; 94640; 99285; J1100; J7620

== ENCOUNTER 2023-09-03 15:47 | Emergency (ER) | payer MEDICARE, MEDICAID ==
[2023-09-03] MEDS ORDERED: Acetaminophen 500 MG TAB ONE (16:33)
[2023-09-03] MEDS ORDERED: Famotidine/PF 20 mg/2ml Vial ONE (16:34)
[2023-09-03 17:07] LABS: #Basophils 0.1 10x3/uL (0.0-0.2); #Eosinphils 0.2 10x3/uL (0.0-0.5); #Monocytes 0.8 10x3/uL (0.0-1.1); #Neutrophils 6.4 10x3/uL (1.5-8.4); %Basophils 0.5 % (0.0-2.0); %Eosinophils 1.5 % (0.0-6.0); %Monocytes 7.8 % (0.0-10.0); %Neutrophils 63.7 % (40.0-75.0); Hematocrit 43.8 % (34.9-44.5); Hemoglobin 13.7 g/dL (12.0-15.5); Mean Corpuscular HGB CONC 31.5 g/dL (32.0-36.0); Mean Corpuscular Hemoglobin 26.1 pg (27.0-33.0); Mean Corpuscular Volume 82.9 fl (81.6-98.3); Mean Platelet Volume 9.8 fl (7.4-10.4); Platelet Count 272 10x3/uL (150-450); RBC Distribution Width 14.4 % (11.5-14.5); Red Blood Cell (RBC) Count 5.25 10x6/uL (3.90-5.03)
[2023-09-03 17:32] LABS: ALT (SGPT) 28 U/L (8-55); AST (SGOT) 21 U/L (5-34); Albumin 3.8 g/dL (3.4-4.8); Alkaline Phosphatase 88 U/L (40-110); Anion Gap 16 mmol/L (10-20); BUN (Urea Nitrogen) 16 mg/dL (9.8-20.1); Bilirubin, Total 0.3 mg/dL (0.2-1.2); Calc. Creatinine Clearance 0 mL/min (70-130); Calcium 9.2 mg/dL (7.8-10.44); Carbon Dioxide 26 mmol/L (23-31); Chloride 102 mmol/L (98-107); Estimated GFR 94; Globulin 3.4 g/dL (2.4-3.5); Glucose 139 mg/dL (80-115); Lipase 15 U/L (8-78); Potassium 3.8 mmol/L (3.5-5.1); Protein, Total 7.2 g/dL (5.8-8.1); Sodium 140 mmol/L (136-145)
[2023-09-03 17:38] LABS: Troponin I Less than 0.010 ng/mL (< 0.028)
[2023-09-03] MEDS ORDERED: Ipratropium/Albuterol 3 ML NEB ONE (17:48)
== END 2023-09-03 18:16 | disposition home or self-care (01) ==
LOC: CSHERS 15:47
DX: R05.9 Cough, unspecified (principal); R06.02 Shortness of breath; I50.9 Heart failure, unspecified; J45.909 Unspecified asthma, uncomplicated
CPT/HCPCS: 71046; 80053; 83690; 84484; 85025; 93005; 94640; 96374; J7620; S0028

== ENCOUNTER 2024-07-12 08:54 | Emergency (ER) | payer MEDICARE, MEDICAID ==
[2024-07-12] MEDS ORDERED: Ondansetron PF 4 MG/2 ML Vial ONE (09:41)
[2024-07-12] MEDS ORDERED: Morphine 4 MG/ML VIAL ONE (09:41)
[2024-07-12 09:59] LABS: #Basophils 0.03 10x3/uL (0.0-0.2); #Eosinphils 0.11 10x3/uL (0.0-0.5); #Monocytes 0.61 10x3/uL (0.0-1.1); #Neutrophils 6.11 10x3/uL (1.5-8.4); %Basophils 0.3 % (0.0-2.0); %Eosinophils 1.2 % (0.0-6.0); %Lymphocytes 23.4 % (18.0-47.0); %Monocytes 6.8 % (0.0-10.0); %Neutrophils 67.7 % (40.0-75.0); Hematocrit 44.4 % (34.9-44.5); Hemoglobin 13.7 g/dL (12.0-15.5); Mean Corpuscular HGB CONC 30.9 g/dL (32.0-36.0); Mean Corpuscular Hemoglobin 25.7 pg (27.0-33.0); Mean Corpuscular Volume 83.3 fL (81.6-98.3); Mean Platelet Volume 10.1 fL (7.4-10.4); Platelet Count 269 10x3/uL (150-450); RBC Distribution Width 14.3 % (11.5-14.5); Red Blood Cell (RBC) Count 5.33 10x6/uL (3.90-5.03)
[2024-07-12 10:17] LABS: ALT (SGPT) 34 U/L (8-55); AST (SGOT) 28 U/L (5-34); Albumin 3.5 g/dL (3.4-4.8); Alkaline Phosphatase 123 U/L (40-110); Anion Gap 14 mmol/L (10-20); BUN (Urea Nitrogen) 12 mg/dL (9.8-20.1); Bilirubin, Total 0.3 mg/dL (0.2-1.2); Calc. Creatinine Clearance 0 mL/min (70-130); Carbon Dioxide 25 mmol/L (23-31); Chloride 103 mmol/L (98-107); Estimated GFR 95; Globulin 3.8 g/dL (2.4-3.5); Glucose 134 mg/dL (80-115); Lipase 48 U/L (8-78); Potassium 3.5 mmol/L (3.5-5.1); Protein, Total 7.3 g/dL (5.8-8.1); Sodium 138 mmol/L (136-145)
[2024-07-12 10:30] LABS: Calcium 9.2 mg/dL (7.8-10.44)
[2024-07-12] MEDS ORDERED: methylPREDNISolone Sod Succ 40 MG VIAL ONE (10:51)
[2024-07-12] MEDS ORDERED: diphenhydrAMINE 50 MG/ML VIAL ONE (10:51)
[2024-07-12] MEDS ORDERED: Famotidine/PF 20 mg/2ml Vial ONE (10:52)
[2024-07-12] MEDS ORDERED: fentaNYL 50 mcg/mL 1 mL Vial ONE (11:15)
== END 2024-07-12 14:52 | disposition short-term general hospital (02) ==
LOC: CSHERS 08:54
DX: R07.9 Chest pain, unspecified (principal); I25.2 Old myocardial infarction; M06.9 Rheumatoid arthritis, unspecified; J45.909 Unspecified asthma, uncomplicated; E66.9 Obesity, unspecified; I50.9 Heart failure, unspecified
CPT/HCPCS: 71275; 74174; 80053; 83690; 83880; 84484 ×2; 85025; 93005; J1200; J2272; J2405; J2919; J3010; J3490; 96374; 96375; Q9967

== ENCOUNTER 2024-08-27 08:59 | Emergency (ER) | payer MEDICARE, OTHER ==
[2024-08-27 09:47] LABS: #Basophils 0.03 10x3/uL (0.0-0.2); #Monocytes 0.54 10x3/uL (0.0-1.1); #Neutrophils 5.17 10x3/uL (1.5-8.4); %Basophils 0.3 % (0.0-2.0); %Eosinophils 1.1 % (0.0-6.0); %Lymphocytes 35.9 % (18.0-47.0); %Monocytes 5.9 % (0.0-10.0); %Neutrophils 56.5 % (40.0-75.0); Hematocrit 42.9 % (34.9-44.5); Hemoglobin 13.1 g/dL (12.0-15.5); Mean Corpuscular HGB CONC 30.5 g/dL (32.0-36.0); Mean Corpuscular Hemoglobin 26.1 pg (27.0-33.0); Mean Corpuscular Volume 85.5 fL (81.6-98.3); Mean Platelet Volume 9.9 fL (7.4-10.4); Platelet Count 251 10x3/uL (150-450); RBC Distribution Width 14.2 % (11.5-14.5); Red Blood Cell (RBC) Count 5.02 10x6/uL (3.90-5.03); White Blood Cell (WBC) Count 9.2 10x3/uL (3.5-10.5)
[2024-08-27 09:52] LABS: ALT (SGPT) 29 U/L (8-55); AST (SGOT) 19 U/L (5-34); Albumin 3.4 g/dL (3.4-4.8); Alkaline Phosphatase 105 U/L (40-110); Anion Gap 14 mmol/L (10-20); BUN (Urea Nitrogen) 11 mg/dL (9.8-20.1); Bilirubin, Total 0.3 mg/dL (0.2-1.2); Calc. Creatinine Clearance 0 mL/min (70-130); Carbon Dioxide 27 mmol/L (23-31); Chloride 103 mmol/L (98-107); Estimated GFR 98; Globulin 3.4 g/dL (2.4-3.5); Glucose 185 mg/dL (80-115); Potassium 3.4 mmol/L (3.5-5.1); Protein, Total 6.8 g/dL (5.8-8.1); Sodium 141 mmol/L (136-145)
[2024-08-27 09:57] LABS: Troponin I Less than 0.010 ng/mL (< 0.028)
[2024-08-27] MEDS ORDERED: methylPREDNISolone Sod Succ/PF 125 MG/2 ML VIAL ONE (11:24)
[2024-08-27] MEDS ORDERED: Ipratropium/Albuterol 3 ML NEB ONE (11:36)
== END 2024-08-27 11:33 | disposition home or self-care (01) ==
LOC: CSHERS 08:59
DX: J45.901 Unspecified asthma with (acute) exacerbation (principal); I50.9 Heart failure, unspecified; I25.2 Old myocardial infarction; Z96.653 Presence of artificial knee joint, bilateral
CPT/HCPCS: 71045; 80053; 83880; 84484; 85025; 93005; 94760; 96374; 99285; J2919; 36415; J7620